=== PATIENT | female | born 1975 | race Caucasian/White ===

== ENCOUNTER 2018-02-28 00:15 | Observation (INO) ==
[2018-02-28 01:33] LABS: Bilirubin,Urine Negative (Negative); Blood,Urine Negative (Negative); Clarity,Urine Cloudy (Clear); Color,Urine Yellow (Yellow); Glucose,Urine (UA) Normal (Normal); Ketones,Urine Negative (Negative); Leukocyte Esterase,Urine Negative (Negative); Nitrite,Urine Negative (Negative); Protein,Urine Negative (Neg-Trace); Specific Gravity,Urine 1.016 (1.010-1.025); Urobilinogen,Urine Normal (Normal)
[2018-02-28 01:36] LABS: Bacteria,Urine Few per hpf (None-Few); Hyaline Casts,Urine None Seen per lpf (None-Few); Squamous Epithelial Cell,Urine Many per lpf (None-Few); WBC,Urine 0-3 per hpf (0-3)
[2018-02-28 01:41] LABS: Amphetamine Screen,Urine Negative ng/mL (Cutoff=1000); Barbiturate Screen,Urine Negative ng/mL (Cutoff=200); Benzodiazepines Screen,Urine Negative ng/mL (Cutoff=200); Cannabinoid Screen,Urine Negative ng/mL (Cutoff = 50); Cocaine Screen,Urine Negative ng/mL (Cutoff= 300); Opiate Screen,Urine Negative ng/mL (Cutoff=300); Phencyclidine Screen,Urine Negative ng/mL (Cutoff=25)
[2018-02-28 01:51] LABS: Basophils # 0.1 K/mcL (0.0-0.2); Basophils % 0.4 %; Eosinophils # 0.1 K/mcL (0.0-0.6); Eosinophils % 0.6 %; Hemoglobin 13.9 g/dL (11.5-15.4); Immature Granulocytes % 0.5 % (0-4); Lymphocytes # 0.5 K/mcL (0.6-4.6); Lymphocytes % 3.9 %; Mean Corpuscular HGB Conc 34.8 g/dL (31.6-35.5); Mean Corpuscular Hemoglobin 31.6 pg (28.0-33.3); Mean Corpuscular Volume 90.9 fL (83.0-100.0); Mean Platelet Volume 10.1 fL (9.4-12.4); Monocytes # 0.4 K/mcL (0.0-1.3); Monocytes % 2.9 %; Platelet Count 209 K/mcL (140-400); Red Cell Distribution Width 13.2 % (11.5-14.5); Segmented Neutrophils % 91.7 %
[2018-02-28 02:00] LABS: INR 0.9; Prothrombin Time 9.2 Seconds (9.4-12.1)
[2018-02-28 02:03] LABS: Activated Partial Thrombo Time 28.6 Seconds (26.0-36.0)
--- NOTE | 2018-02-28 02:06 | Emergency Department Note ---
Disposition Clinical Impression: NSTEMI (non-ST elevated myocardial infarction) Disposition: Admitted As Inpatient Condition: Undetermined Referrals: NONE,PCP [Primary Care Provider] - Forms: ED Satisfaction Letter Chest Pain HPI - General Chief Complaint: ED Chest Pain Stated Complaint: CP/tachycardia Time Seen by Provider: 02/28/18 00:30 Source: patient Mode of arrival: private vehicle Limitations: no limitations Vital Signs Reviewed: Yes Nursing Notes Reviewed: Yes - History of Present Illness HPI Narrative: 43-year-old female past medical history of depression, anxiety, hypertension presents to the emergency department for evaluation of tachycardia and chest pain. Patient states that earlier today and felt like her heart was beating really hard and felt like her throat was closing in, she stated that she pushed through into to go to work. What she was at work she felt like her heart started beating really fast again initially she had a little bit of pain in her chest. She went to her car to calm down and she was looking up her symptoms as stated they are consistent with a heart attack so she came for evaluation. Patient complains of shortness of breath with coughing or exertion, coughing and states she has for the last couple weeks and has not felt well. She denies edema. She states she has had these feelings before particularly the heart beating fast but she started without much of it and it has always gone away on its own. She states she does not take any medication for hypertension because she does not have a PCP but she does have a psychiatrist and continues on her antidepressants and anti-anxiety. She denies fever, chills, nausea, vomiting, diarrhea [place] through exam after patient had a coughing episode she states that the coughing actually increases her chest pain particularly on her left side of her lower back. Pt complaint: chest pain Onset (ago): hour(s) Duration: intermittent Onset: during rest Pain Location: substernal, left chest Severity: none Severity scale (1-10): 0 Quality: tightness Pain Radiation: none Improves with: nothing Worsens with: nothing Treatments prior to arrival chest pain: none - Related Data Home Medications Medication Instructions Recorded Confirmed Citalopram Hydrobromide 40 mg PO QAM 04/19/16 04/19/16 [Citalopram HBr] Gabapentin [Neurontin] 600 mg PO TID 04/19/16 04/19/16 Lisinopril [Zestril] 20 mg PO DAILY 04/19/16 04/19/16 diazePAM [Valium] 5 mg PO BID 04/19/16 04/19/16 hydrOXYzine pamoate [HydrOXYzine 25 mg PO TID PRN 04/19/16 04/19/16 Pamoate] Previous Rx's Medication Instructions Recorded Docusate [Colace] 100 mg PO BID #30 capsule 04/19/16 OxyCODONE/APAP 5/325 [Percocet 1 each PO Q6HR PRN #30 tablet 04/19/16 5/325 MG] Phenazopyridine HCl [Pyridium] 200 mg PO TIDAC #6 tab 07/25/17 Sulfamethoxazole/Trimeth DS 1 each PO BID #14 tablet 07/25/17 [Bactrim DS] Tramadol HCl [Ultram] 50 mg PO TID PRN #6 tab 07/25/17 Lidocaine Patch [Lidoderm 5% patch] 1 each TP DAILY #7 adh..patch 08/22/17 Allergies Allergy/AdvReac Type Severity Reaction Status Date / Time No Known Allergies Allergy Verified 07/25/17 13:51 All systems ED: reviewed and negative except as stated. Review of Systems: As Per HPI Chest Pain PMH - Past Medical History Medical history: Reports: hypertension Surgical history: Reports: other Psychiatric history: Reports: anxiety, depression, previous psychiatric hospitalization [employer] history: Reports: bilateral tubal ligation - Social History Smoking Status: Current every day smoker Alcohol use: Reports: occasionally Drug use: Reports: none Physical Exam - General Limitations: no limitations General appearance: alert, in no apparent distress - Head Head exam: atraumatic, normocephalic, normal inspection - ENT ENT exam: mucous membranes moist - Neck Neck exam: Present: normal inspection, full ROM, trachea midline - Chest Chest inspection: Present: normal inspection, symmetric chest wall rise - Respiratory Respiratory exam: Present: normal lung sounds bilaterally - Cardiovascular Cardiovascular exam: Present: normal rhythm, tachycardia (107 during exam), normal heart sounds - Abdominal Exam Abdominal exam: Present: soft, Non-Tender. Absent: tenderness, distention, guarding, rebound, rigidity - Extremities Exam Extremities exam: Present: normal inspection, full ROM. Absent: tenderness, pedal edema - Back Exam Back exam: Present: normal inspection, full ROM. Absent: tenderness - Neurological Exam Neurological exam: Present: alert, oriented X3 - Psychiatric Psychiatric exam: Present: normal affect, anxious - Skin Skin exam: Present: warm, dry, intact, normal color Course Course Narrative: 43-year-old anxious-appearing female. She speaks in full sentences without any distress, respirations are easy and even, lungs clear to auscultate, she does have a dry cough occasionally during exam. Exam negative, no edema, heart rate regular rhythm, bowel sounds 4. At time of exam patient without any chest pain or feeling like her heart was beating fast. During exam patient states coughing makes her chest hurt worse particularly on the left side. We will workup for chest pain, tachycardia to ensure is not a cardiac etiology. Concern also for URI or pneumonia as patient states she has been coughing. - Reevaluation(s) Reevaluation #1: Troponin returned 0.08. Patient remains tachycardic ranging from 98-10 5 bpm. EKG shows sinus tachycardia with short MS interval, slight elevation in white blood cells, renal function without abnormality. NSTEMI. The patient hospitalist who wanted cardiology consult. Discussed admission with patient is agreeable plan of care. Time: 02:45 Reevaluation #2: Spoke with hospitalist who saw patient willing to take patient. Patient has been resting quietly, no change in physical assessment. Time: 03:31 - Consultations Consultation #1: Spoke with cardiology who recommends heparin drip, admit hospitalist and consult cardiology for close follow-up. Time: 02:58 Vital Signs Temperature 98.0 F 02/28/18 00:30 Pulse Rate 110 02/28/18 00:30 Respiratory Rate 16 02/28/18 00:30 Blood Pressure 142/92 02/28/18 00:30 O2 Sat by Pulse Oximetry 98 02/28/18 00:30 Temperature 98.0 F 02/28/18 00:30 Pulse Rate 101 02/28/18 02:00 Respiratory Rate 16 02/28/18 02:00 Blood Pressure 144/98 02/28/18 02:00 O2 Sat by Pulse Oximetry 97 02/28/18 02:00 Oxygen Delivery Oxygen Delivery Room Air Chest Pain - Differential Diagnosis Likely: atypical chest pain, costalchondritis, chest pain. Unlikely: st elevation myocardial infraction, biliary colic - Medical Records Medical records reviewed: Yes I reviewed the patient's medical records. - Lab Data Lab results reviewed: Yes I reviewed the patient's lab results. Result diagrams: 02/28/18 01:01 02/28/18 01:01 Lab Results 02/28/18 02/28/18 02/28/18 Range/Units 00:51 01:01 01:01 WBC 13.1 H (4.3-11.1) K/mcL RBC 4.40 (3.82-4.97) M/mcL Hgb 13.9 (11.5-15.4) g/dL Hct 40.0 (35.3-44.9) % MCV 90.9 (83.0-100.0) fL MCH 31.6 (28.0-33.3) pg MCHC 34.8 (31.6-35.5) g/dL RDW 13.2 (11.5-14.5) % Plt Count 209 (140-400) K/mcL MPV 10.1 (9.4-12.4) fL Immature Gran % 0.5 (0-4) % Seg Neutrophils % 91.7 % Lymphocytes % 3.9 % Monocytes % 2.9 % Eosinophils % 0.6 % Basophils % 0.4 % Neutrophils # 12.0 H (1.6-8.9) K/mcL Lymphocytes # 0.5 L (0.6-4.6) K/mcL Monocytes # 0.4 (0.0-1.3) K/mcL Eosinophils # 0.1 (0.0-0.6) K/mcL Basophils # 0.1 (0.0-0.2) K/mcL PT 9.2 L (9.4-12.1) Seconds INR 0.9 APTT 28.6 (26.0-36.0) Seconds Sodium 134 L (136-145) mEq/L Potassium 4.2 (3.5-5.1) mEq/L Chloride 105 (98-107) mEq/L Carbon Dioxide 23 (23-29) mEq/L BUN 18 (6-20) mg/dL Creatinine 0.77 (0.60-1.20) mg/dL Est GFR ( Amer) > 60 (> 60) Est GFR (Non-Af Amer) > 60 (> 60) BUN/Creatinine Ratio 23 (6-26) Glucose 133 H (70-105) mg/dL Calculated Osmolality 282 (280-300) Calcium 9.0 (8.6-10.3) mg/dL Total Bilirubin 0.4 (0.3-1.0) mg/dL Direct Bilirubin 0.1 (0.0-0.2) mg/dL Indirect Bilirubin 0.3 (0.0-1.2) mg/dL AST 34 (13-39) Units/L ALT 29 (7-52) Units/L Alkaline Phosphatase 160 H (34-104) Units/L Troponin I 0.08 H* (< 0.04) ng/mL Serum Total Protein 6.5 (6.4-8.9) g/dL Albumin 3.9 (3.5-5.7) g/dL Globulin 2.6 (2.4-3.5) g/dL Albumin/Globulin Ratio 1.5 (1.1-2.2) Lipase 14 (11-82) Units/L Urine Color (Yellow) Urine Clarity (Clear) Urine pH (5.0-8.0) pH Units Ur Specific [place] (1.010-1.025) Urine Protein (Neg-Trace) mg/dL Urine Glucose (UA) (Normal) mg/dL Urine Ketones (Negative) mg/dL Urine Blood (Negative) Urine Nitrite (Negative) Urine Bilirubin (Negative) Urine Urobilinogen (Normal) mg/dL Ur Leukocyte Esterase (Negative) Urine Microscopic RBC Urine Microscopic WBC (0-3) per hpf Ur Squamous Epith Cells (None-Few) per lpf Urine Bacteria (None-Few) per hpf Hyaline Casts (None-Few) per lpf Ur Culture Indicated? (NO) Urine Test (Negative) Urine Opiates Screen (Fqjfbg=761) ng/mL Ur Barbiturates Screen (Qcrgoc=298) ng/mL Ur Phencyclidine Scrn (Cutoff=25) ng/mL Ur Amphetamines Screen (Oyexbu=1986) ng/mL U Benzodiazepines Scrn (Vbnmll=249) ng/mL Urine Cocaine Screen (Cutoff= 300) ng/mL U Marijuana (THC) Screen (Cutoff = 50) ng/mL 02/28/18 02/28/18 02/28/18 Range/Units 01:20 01:20 01:20 WBC (4.3-11.1) K/mcL RBC (3.82-4.97) M/mcL Hgb (11.5-15.4) g/dL Hct (35.3-44.9) % MCV (83.0-100.0) fL MCH (28.0-33.3) pg MCHC (31.6-35.5) g/dL RDW (11.5-14.5) % Plt Count (140-400) K/mcL MPV (9.4-12.4) fL Immature Gran % (0-4) % Seg Neutrophils % % Lymphocytes % % Monocytes % % Eosinophils % % Basophils % % Neutrophils # (1.6-8.9) K/mcL Lymphocytes # (0.6-4.6) K/mcL Monocytes # (0.0-1.3) K/mcL Eosinophils # (0.0-0.6) K/mcL Basophils # (0.0-0.2) K/mcL PT (9.4-12.1) Seconds INR APTT (26.0-36.0) Seconds Sodium (136-145) mEq/L Potassium (3.5-5.1) mEq/L Chloride (98-107) mEq/L Carbon Dioxide (23-29) mEq/L BUN (6-20) mg/dL Creatinine (0.60-1.20) mg/dL Est GFR ( Amer) (> 60) Est GFR (Non-Af Amer) (> 60) BUN/Creatinine Ratio (6-26) Glucose (70-105) mg/dL Calculated Osmolality (280-300) Calcium (8.6-10.3) mg/dL Total Bilirubin (0.3-1.0) mg/dL Direct Bilirubin (0.0-0.2) mg/dL Indirect Bilirubin (0.0-1.2) mg/dL AST (13-39) Units/L ALT (7-52) Units/L Alkaline Phosphatase (34-104) Units/L Troponin I (< 0.04) ng/mL Serum Total Protein (6.4-8.9) g/dL Albumin (3.5-5.7) g/dL Globulin (2.4-3.5) g/dL Albumin/Globulin Ratio (1.1-2.2) Lipase (11-82) Units/L Urine Color Yellow (Yellow) Urine Clarity Cloudy A (Clear) Urine pH 6.0 (5.0-8.0) pH Units Ur Specific [place] 1.016 (1.010-1.025) Urine Protein Negative (Neg-Trace) mg/dL Urine Glucose (UA) Normal (Normal) mg/dL Urine Ketones Negative (Negative) mg/dL Urine Blood Negative (Negative) Urine Nitrite Negative (Negative) Urine Bilirubin Negative (Negative) Urine Urobilinogen Normal (Normal) mg/dL Ur Leukocyte Esterase Negative (Negative) Urine Microscopic RBC Test Not Performed Urine Microscopic WBC 0-3 (0-3) per hpf Ur Squamous Epith Cells Many H (None-Few) per lpf Urine Bacteria Few (None-Few) per hpf Hyaline Casts None Seen (None-Few) per lpf Ur Culture Indicated? NO (NO) Urine Test Negative (Negative) Urine Opiates Screen Negative (Ycybsy=582) ng/mL Ur Barbiturates Screen Negative (Wruxyg=574) ng/mL Ur Phencyclidine Scrn Negative (Cutoff=25) ng/mL Ur Amphetamines Screen Negative (Rnmoip=0681) ng/mL U Benzodiazepines Scrn Negative (Qeyidb=352) ng/mL Urine Cocaine Screen Negative (Cutoff= 300) ng/mL U Marijuana (THC) Screen Negative (Cutoff = 50) ng/mL - Radiology Data Radiology results reviewed: Yes I reviewed the patient's radiology results. - EKG Data EKG attestation: Yes I reviewed and interpreted this EKG. EKG results narrative: EKG reveals sinus tachycardia with a short MS interval with possible left atrial enlargement. That rate 118 bpm, MS interval [address] elevation, depression. Heart Score - Score History: Slightly Suspicious EKG: Normal Age: Less than 45 Risk Factors: No risk factors known Troponin: 1-3x normal limit HEART Score Total: 1
[2018-02-28 02:13] LABS: Alanine Aminotransferase 29 Units/L (7-52); Albumin 3.9 g/dL (3.5-5.7); Albumin/Globulin Ratio 1.5 (1.1-2.2); Alkaline Phosphatase 160 Units/L (34-104); Aspartate Amino Transferase 34 Units/L (13-39); BUN/Creatinine Ratio 23 (6-26); Bilirubin,Direct 0.1 mg/dL (0.0-0.2); Bilirubin,Indirect 0.3 mg/dL (0.0-1.2); Bilirubin,Total 0.4 mg/dL (0.3-1.0); Blood Urea Nitrogen 18 mg/dL (6-20); Carbon Dioxide 23 mEq/L (23-29); Chloride 105 mEq/L (98-107); Globulin 2.6 g/dL (2.4-3.5); Glucose 133 mg/dL (70-105); Lipase 14 Units/L (11-82); Osmolality,Calculated 282 (280-300); Potassium 4.2 mEq/L (3.5-5.1); Sodium 134 mEq/L (136-145); Total Protein 6.5 g/dL (6.4-8.9); eGFR For African Americans > 60 (> 60); eGFR For Non-African Americans > 60 (> 60)
[2018-02-28 02:28] LABS: Troponin I 0.08 ng/mL (< 0.04)
[2018-02-28] MEDS ORDERED: Aspirin 81 MG TAB.CHEW PO ONE (02:29)
[2018-02-28] MEDS ORDERED: Heparin 25,000 UNIT/500 ML D5W 25,000 UNIT/500 ML BAG IVC SCH (03:00)
[2018-02-28] MEDS ORDERED: Naloxone 0.4 MG/ML INJ IVP PRN (03:15)
[2018-02-28] MEDS ORDERED: Acetaminophen 325 MG TABLET PO PRN (03:15)
[2018-02-28] MEDS ORDERED: Nitroglycerin 0.4 MG TAB.SUBL SL PRN (03:16)
--- NOTE | 2018-02-28 03:19 | Internal Med History&Physical ---
Date of Encounter: 02/28/18 Time of Encounter: 03:17 Internal Medicine - H&P: HPI Chief complaint: Tachycardia Admitted From: Emergency Dept Plans for Post Hospital Care: Home History of present illness: Ms. Almaguer is a 43 year old female with history of anxiety and tobacco abuse and hypertension for which she is not taking any medication presents reporting 2 days worth of palpitations and chest discomfort that is midsternal. No radiation. Associated diaphoresis. This is exacerbated by exertion. Comes in goes for short periods of times throughout the day. This morning when she woke up and was getting ready to work she was not feeling herself and felt that the dictations and again was diaphoretic and felt chest discomfort again. She went to work and had a similar episode and she went back outside to her car and looked up on the issue on her phone and came to the ED as she suspected that she may have a heart attack. In the ED she was noted to be tachycardic and was given aspirin. She had laboratory workup that showed troponin of 0.08. She had no acute ST or T-wave changes on EKG. Cardiology were consulted in the ED and recommended a heparin drip. The patient is a current every day smoker. She has family history of cardiac disease in her uncles. She herself never had any cardiac workup. Reports a dry cough for the last few days. Denies any fever, chills, nausea, vomiting, abdominal pain, diarrhea, constipation, urinary symptoms, or neurological symptoms Past Med Surg Social Fam HX - Past Medical History Medical history: hypertension Psychiatric history: anxiety, depression, previous psychiatric hospitalization - Past Surgical History Surgical History: other - Social History Smoking Status: Current every day smoker Smokeless Tobacco Status: No Alcohol use: occasionally Drug use: none Internal Medicine - H&P: Meds Citalopram Hydrobromide [Citalopram HBr] 40 mg PO QAM 04/19/16 [History] Docusate [Colace] 100 mg PO BID #30 capsule 04/19/16 [Rx] Gabapentin [Neurontin] 600 mg PO TID 04/19/16 [History] Lisinopril [Zestril] 20 mg PO DAILY 04/19/16 [History] OxyCODONE/APAP 5/325 [Percocet 5/325 MG] 1 each PO Q6HR PRN #30 tablet 04/19/16 [Rx] diazePAM [Valium] 5 mg PO BID 04/19/16 [History] hydrOXYzine pamoate [HydrOXYzine Pamoate] 25 mg PO TID PRN 04/19/16 [History] Phenazopyridine HCl [Pyridium] 200 mg PO TIDAC #6 tab 07/25/17 [Rx] Sulfamethoxazole/Trimeth DS [Bactrim DS] 1 each PO BID #14 tablet 07/25/17 [Rx] Tramadol HCl [Ultram] 50 mg PO TID PRN #6 tab 07/25/17 [Rx] Lidocaine Patch [Lidoderm 5% patch] 1 each TP DAILY #7 adh..patch 08/22/17 [Rx] 3 Allergy/AdvReac Type Severity Reaction Status Date / Time No Known Allergies Allergy Verified 07/25/17 13:51 All Systems PM: A 10-system review of systems was performed and is negative for pertinent findings except as documented above in the HPI. Review of systems: all systems reviewed are negative except for what is mentioned above - Constitutional Vitals: Temp Pulse Resp BP Pulse Ox 98.0 F 101 16 144/98 97 02/28/18 00:30 02/28/18 02:00 02/28/18 02:00 02/28/18 02:00 02/28/18 02:00 Exam: GEN: NAD HEENT: AT, NC, No cyanosis, oral mucosa is moist, No JVD Lymphatics: No lymphadenoapthy Eyes: Extrocular muscles intact, anicteric CVS: Tachycardic. S1, S2, No m/r/g RESP: CTAB ABD: Soft, NT, ND, +BS EXT: No edema, No rashes, 2+ DP NEURO: Nonfocal, CN II-XII intact, No focal motor or sensory deficits Psych: Cooperative, Not anxious or depressed Internal Med - H&P Results - Labs CBC & Chem 7: 02/28/18 01:01 02/28/18 01:01 Labs: Short CBC 02/28/18 Range/Units 01:01 WBC 13.1 H (4.3-11.1) K/mcL Hgb 13.9 (11.5-15.4) g/dL Hct 40.0 (35.3-44.9) % Plt Count 209 (140-400) K/mcL Neutrophils # 12.0 H (1.6-8.9) K/mcL BMP 02/28/18 01:01 Sodium 134 L Potassium 4.2 Chloride 105 Carbon Dioxide 23 BUN 18 Creatinine 0.77 Glucose 133 H Calcium 9.0 Cardiac Enzymes 02/28/18 Range/Units 01:01 Troponin I 0.08 H* (< 0.04) ng/mL Liver Function 02/28/18 Range/Units 01:01 Total Bilirubin 0.4 (0.3-1.0) mg/dL Direct Bilirubin 0.1 (0.0-0.2) mg/dL AST 34 (13-39) Units/L ALT 29 (7-52) Units/L Alkaline Phosphatase 160 H (34-104) Units/L Albumin 3.9 (3.5-5.7) g/dL Urine 02/28/18 Range/Units 01:20 Urine Color Yellow (Yellow) Urine Clarity Cloudy A (Clear) Urine pH 6.0 (5.0-8.0) pH Units Ur Specific [place] 1.016 (1.010-1.025) Urine Protein Negative (Neg-Trace) mg/dL Urine Glucose (UA) Normal (Normal) mg/dL - Impressions ITS Impressions Chest X-Ray 02/28/18 00:51 IMPRESSION: No acute cardiopulmonary disease. D/ / Ketan Avilez MD / Ketan Avilez MD Interpreting Provider: Ketan Avilez MD - Assessment and plan (1) NSTEMI (non-ST elevated myocardial infarction) Current Visit: Yes Status: Acute Assessment and plan: We will admit the patient and place on telemetry. Cardiology has been consulted from the ED and placed on heparin drip. We will trend cardiac enzymes. Check A1c and lipid panel. Patient has been given aspirin already. Nitroglycerin when necessary. Nothing by mouth (2) Leukocytosis Current Visit: Yes Status: Acute Assessment and plan: Likely reactive versus possibly viral URI. No need for antibiotics for now. We will continue to monitor. Patient is afebrile Qualifiers: Leukocytosis type: unspecified Qualified Code(s): D72.829 - Elevated white blood cell count, unspecified (3) Elevated glucose level Current Visit: Yes Status: Acute Assessment and plan: No history of diabetes. We will check A1c. (4) Anxiety Current Visit: Yes Status: Acute Assessment and plan: Continue home meds (5) DVT prophylaxis Current Visit: Yes Status: Acute Assessment and plan: on heparin drip - Time Spent With Patient Total time spent is greater than 50% in coordination of care (as documented) at patient's floor/unit and/or counseling patient:
[2018-02-28] MEDS ORDERED: Nitroglycerin 1 INCH/GM PACKET TP ONE (03:26)
[2018-02-28 08:09] LABS: Chol/HDL Ratio 2.3 (0-4.9)
[2018-02-28] MEDS: Gabapentin 300 MG CAPSULE PO SCH ×3 (08:50→19:26)
[2018-02-28] MEDS: diazePAM 5 MG TABLET PO SCH ×2 (08:50→19:26)
[2018-02-28] MEDS: Nicotine 21 MG PATCH.TD24 TD SCH (08:51)
[2018-02-28 09:27] LABS: Troponin I 0.13 ng/mL (< 0.04)
[2018-02-28 09:34] LABS: Thyroid Stimulating Hormone 2.433 mcIU/mL (0.340-5.600)
--- NOTE | 2018-02-28 10:23 | Cardiology Consult Note ---
Date of Encounter: 02/28/18 Time of Encounter: 09:00 Assessment and Plan (1) NSTEMI (non-ST elevated myocardial infarction) Current Visit: Yes Status: Acute Per cardiology: -Admitted with chest pain radiating to left arm and jaw. -Troponins 0.08, 0.13. -ECG with no acute ischemic changes. -Denies current chest pain. -ON heparin drip. -Risk factors for CAD smoking, HTN. -Plan for LHC today. Risks versus benefits of LHC explained to patient. Patient states understanding and agrees with plan. -Will start asa, statin, BB. -WIll check TTE -Further recommendations pending TTE and LHC. (2) Tobacco abuse Current Visit: Yes Status: Acute Per cardiology: -Known tobacco abuse. -Smokes 1.5 PPD for 20 years. -SMoking cessation education provided. Discussion w patient/family: The assessment and plan as outlined above was discussed with the patient who expressed understanding and agreement. All questions were answered. Thank you for involving us in the care of your patient. Please call with any questions. Discussed and reviewed with . History of Present Illness Consult date: 02/28/18 Requesting physician: Gemma Dunn Consult reason: chest pain, elevated trop Chief complaint: chest pain History of present illness: Ms. Almaguer is a 43 year old female with a relevant past medical history of HTN , tobacco abuse, depression, anxiety who presented to [facility] [place] with complaints of left sided chest pain that radiated into left arm and jaw. Patient reports has been having this pain intermittently for a few weeks. Patient reports also increased shortness of breath with exertion. Patient reports symptoms and rest and with exertion. Past Med Surg Social Fam HX - Past Medical History Attestation: Yes The following information was validated with the patient. Source: patient, old records reviewed Medical history: hypertension Psychiatric history: anxiety, depression, previous psychiatric hospitalization - Past Surgical History Surgical History: other - Social History Smoking Status: Current every day smoker Packs per day: 1.5 Smokeless Tobacco Status: No Alcohol use: occasionally Drug use: none - Family History Grandfather Living Status: Hx Family Cardiac Disorders: Yes Medications and Allergies Citalopram Hydrobromide [Citalopram HBr] 40 mg PO QAM 04/19/16 [History] BuPROPion XL (24 HR) [Wellbutrin XL] 300 mg PO DAILY 02/28/18 [History] Gabapentin [Neurontin] 800 mg PO TID 02/28/18 [History] hydrOXYzine HCl [Hydroxyzine HCl] 25 mg PO TID PRN 02/28/18 [History] traZODone [TraZODone] 100 mg PO HS 02/28/18 [History] 3 Allergy/AdvReac Type Severity Reaction Status Date / Time No Known Allergies Allergy Verified 07/25/17 13:51 All Systems Review: The remainder of the systems were reviewed and are negative - Cardiovascular Cardiovascular: as per HPI, chest pain at rest, chest pain with exertion, dyspnea on exertion Physical Examination Vital Signs, Last 4 Hours Temp Pulse Resp BP Pulse Ox 02/28/18 07:33 98.0 F 87 18 153/94 96 General: Conversant, No Apparent Distress HEENT: Atraumatic, Normocephaly, Mucus Membranes Moist Neck: No JVD, Normal carotid pulses Cardiac: Reg Rate and Rhythm, Normal S1 and S2, No Murmur Lungs: Normal Breath Sounds, No Wheeze, Rales, Rhonchi Neuro: Alert and responsive, No focal deficits noted Abdomen: Soft, Non-Tender Skin: No rashes noted on visualized skin Musculoskeletal: No Chest Wall Tenderness Extremities: No Clubbing, No Cyanosis, No Edema, Normal Pulses Results 02/28/18 01:01 02/28/18 01:01 Lab Results Impressions Chest X-Ray 02/28/18 00:51 IMPRESSION: No acute cardiopulmonary disease. D/ / Ketan Avilez MD / Ketan Avilez MD Interpreting Provider: Ketan Avilez MD Active Medications Acetaminophen (Tylenol) 650 mg PO Q6HR PRN PRN Reason: Mild Pain/Fever Stop: 08/30/18 03:16 Bupropion HCl (Wellbutrin Xl) 300 mg PO DAILY [facility] Stop: 08/30/18 09:01 Citalopram Hydrobromide (Celexa) 40 mg PO QAM [facility] Stop: 08/30/18 09:01 Last Admin: 02/28/18 08:50 Dose: 40 mg Diazepam (Valium) 5 mg PO BID [facility] Stop: 08/30/18 09:01 Last Admin: 02/28/18 08:50 Dose: 5 mg Gabapentin (Neurontin) 600 mg PO TID [facility] Stop: 08/30/18 09:01 Last Admin: 02/28/18 08:50 Dose: 600 mg Hydroxyzine Pamoate (Hydroxyzine Pamoate) 25 mg PO TID PRN PRN Reason: Breakthrough Anxiety Stop: 08/30/18 06:47 Heparin Sodium/Dextrose (Heparin 25,000 Unit/500 Ml D5w) 25,000 unit in 500 mls @ 20.321 mls/hr IVC .Q24H [facility]; 14 UNIT/KG/HR PRN Reason: Protocol Stop: 08/30/18 03:01 Last Admin: 02/28/18 03:16 Dose: 14 unit/kg/hr, 20.321 mls/hr Naloxone HCl (Narcan) 0.4 mg IVP Q2MIN PRN PRN Reason: SEE COMMENTS Stop: 08/30/18 03:16 Nicotine (Nicoderm) 21 mg TD DAILY [facility] PRN Reason: Protocol Stop: 08/30/18 09:01 Last Admin: 02/28/18 08:51 Dose: Not Given Nitroglycerin (Nitroglycerin) 0.4 mg SL Q5MIN PRN PRN Reason: Chest Pain Stop: 08/30/18 03:17 Laboratory Tests 02/28/18 02/28/18 02/28/18 01:01 01:01 07:30 WBC 13.1 H Hgb 13.9 Creatinine 0.77 Troponin I 0.08 H* 0.13 H* - Imaging and Cardiology Chest Xray: report reviewed Cardiac cath: pending - EKG Interpretation EKG results cardiology: personally reviewed (ECG with ST, HR 118.), other ( Telemetry reviewed with average HR previous 12 hours noted to be 88, SR. PACs noted.) Consult Discharge Plan - Plan Referrals: NONE,PCP [Primary Care Provider] -
[2018-02-28] MEDS ORDERED: *HR* Heparin 5,000 UNIT/ML VIAL IVP PRN ×2 (10:39)
[2018-02-28] MEDS ORDERED: *HR* Heparin 5,000 UNIT/ML VIAL ONE (10:46)
[2018-02-28] MEDS: BuPROPion XL (24 HR) 150 MG TABLET PO SCH (10:49)
[2018-02-28 11:05] LABS: Estimated Average Glucose 108 mg/dl; Hemoglobin A1C 5.4 %
[2018-02-28] MEDS ORDERED: Heparin 1,000 UNITS/500 mL 500 ML ONE (13:52)
[2018-02-28] MEDS ORDERED: ISOVUE-370 200 ML INFUS..BTL IV ONE (13:52)
[2018-02-28] MEDS ORDERED: *HR* Heparin 10,000 UNIT/10 ML VIAL ONE (13:52)
[2018-02-28] MEDS ORDERED: Nitroglycerin 1,000 MCG/10 ML VIAL IV ONE (13:52)
[2018-02-28] MEDS ORDERED: 0.9 % Sodium Chloride 1,000 ML ONE (13:52)
--- NOTE | 2018-02-28 14:09 | Pre-Sedation Evaluation ---
Pre-sedation evaluation - Pre-sedation checklist Date of procedure: 02/28/18 Procedure: [facility] Recent Vitals: Last Vital Signs Temp 98.8 F 02/28/18 11:32 Pulse 83 02/28/18 11:32 Resp 18 02/28/18 11:32 BP 147/89 02/28/18 11:32 Pulse Ox 96 02/28/18 11:32 H&P (including ROS) documented in medical record: Yes Previous reaction to sedatives/anesthetics: No Dietary Status: NPO after Midnight Airway Assessment: Patient can open mouth completely, TMJ function normal, Micrognathia (under-bite, receding chin) absent, Neck with adequate range of motion Dentition: No loose teeth or bridges Possible difficult airway: No ASA Classification *see protocol: CLASS II-Mild systemic disease Plan of Care: Pt appropriate candidate for procedure/moderate/conscious sedation , Risks/benefits of procedure/sedation discussed w/ patient/family
[2018-02-28] MEDS ORDERED: *HR* Midazolam HCl 2 MG/2 ML VIAL ONE (14:20)
[2018-02-28] MEDS ORDERED: *HR* FentaNYL (PF) 100 MCG/2 ML VIAL ONE (14:20)
--- NOTE | 2018-02-28 14:57 | Invasive Diagnostic Lab Proc ---
Name: Zoie Almaguer Date of Study: 02/28/2018 Date: 1975 Ht: 61.8in Medical Record#: [id number] Age: 43 Wt: 169.76lb Gender: Female BSA: 1.78 Order #: [id number] BMI: 31.24 Physicians Procedure Physician: Maya Hernandez MD, FACC Referring MD: Referring MD: Staff Name Position Time In Julia Landrum RT (R) Monitor 02:19 PM Kimberly Ceron RN Ski Lift Operator 02:19 PM Robert Gomez RT (R) Scrub 02:19 PM Indications Indication Non-Stemi Procedures Performed Procedure L HRT ARTERY/VENTRICLE ANGIO Pre-Procedure Checklist Informed consent is complete signed and on chart. H&P is on chart. ID band is on and ID verified with patient. Patient NPO for procedure The procedure was described for the patient and questions were answered. Blood Pressure: 154/98 ECG is on chart. Rhythm: NSR Plan of Care Patient will tolerate the procedure without complications. Adequate level of comfort will be maintained. Hemodynamics will remain stable Patient will recover from procedure without complications. Respiratory function will be maintained. Cardiac rhythm will remain stable. Patient temperature will be maintained. Patient and/or family have verbalized understanding of the procedure. Patient Education Chief Complaint/Reason for Test: Cardiac Cath Developmental Category: Adult (18-64 years) Developmentally Appropriate for Age: Yes Learning Barriers: None Education Needs: Procedure Education Method: Verbal Information Taught: Cardiac Cath Educational Evaluation: Able to repeat information Intravenous Access Time IV Size Location DC'd Fluid/Drip Rate Units RN 20g 1 /" Patent On Arrival 0.9NaCl ml/hr Allergies NKA No Known Allergies Vital Signs Time BP (mmHg) HR (bpm) O2 Sat. RR (bpm) LOC 02:20 PM 152 / 98 82 98 % 16 4 = Oriented but drowsy 02:21 PM / % 4 = Oriented but drowsy 02:21 PM 154 / 98 84 97 % 02:26 PM 145 / 93 85 96 % 02:31 PM 142 / 89 80 97 % 02:36 PM 142 / 91 80 97 % 02:41 PM 145 / 94 82 96 % 02:36 PM / % 4 = Oriented but drowsy Procedural Medications Time Medication Dose Units Method Given By 02:20 PM Oxygen 2 L/min nasal cannula Kimberly Ceron RN 02:20 PM Versed 2 mg Intravenous Kimberly Ceron RN 02:20 PM Fentanyl 50 mcg Intravenous Kimberly Ceron RN 02:29 PM Lidocaine 2% 20 ml Subcutaneous Maya Hernandez MD, [facility] ASA Classification: CLASS II- Mild systemic disease (i.e. well-controlled diabetes, hypertension, asthma, cigarette smoking) Enoc Score Preprocedure Postprocedure Activity 2- Moves 4 extremities sustained head lift Activity 2- Moves 4 extremities sustained head lift Circulation 2- SBP +/= 20 points of pre-anesthetic level Circulation 2- SBP +/= 20 points of pre-anesthetic level Consciousness 2- Awake and alert oriented x 3 Consciousness 2- Awake and alert oriented x 3 O2 Saturation 2- Able to maintain O2 satruation of 92% on room air O2 Saturation 2- Able to maintain O2 satruation of 92% on room air Respiratory 2- Able to deep breathe and cough well Respiratory 2- Able to deep breathe and cough well Total Score 10 Total Score 10 Contrast Agent: Isovue Diagnostic Contrast: 44 ml Total Contrast: 44 ml Fluoro Dose: 91 mGy Procedure Log Time Note Enter By 02:19 PM Recorded ECG: HR=83 Condition=Condition 1 02:19 PM Pt arrived to veterinary laboratory technician 1 at 14:19 [email or web address] 02:19 PM Julia Landrum RT (R) Position: Monitor [facility]: 14[facility]19 [email or web address] PM Kimberly Ceron RN Position: Ski Lift Operator Time in: 14:19 [email or web address] 02:19 PM Robert Gomez RT (R) Position: Scrub Time [facility]: 14:19 [email or web address] 02:19 PM Patient charges- Angio tray pack, Navilyst 3mm J, Pulse Oximetry and ACIST tubing and transducer [email or web address] 02:20 PM Case Delayed No [email or web address] 02:20 PM Hair removed from procedure site in holding area using clippers. Bilateral groin prepped with Chloraprep by Juancarlos Edmondson, then patient was draped. Skin intact. [email or web address] 02:20 PM Physican paged/called 14:20. [email or web address] 02:20 PM Physician arrived 14:[email or web address] 02[facility] PM ASA Class CLASS II- Mild systemic disease (i.e. well-controlled diabetes, hypertension, asthma, cigarette smoking) [email or web address] 02:20 PM Meet and greet completed [email or web address] 02:20 PM Sign in performed according to hospital policy. [email or web address] 02:20 PM Procedure start 14:20 [email or web address] 02:20 PM Time: 14:20 Oxygen on at 2 L/min per nasal cannula by Kimberly Ceron RN [email or web address] 02:20 PM CathStat 02:20 PM Vitals capture started with the following parameters, Patient=Adult, Interval=5 min, Initial Oonmslqx=656 mmHg, Deflation Rate=5 mmHg, Cuff placed on Right Arm 02:20 PM Time: 14:20 Versed 2 mg Intravenous Given by Kimberly Ceron RN [email or web address] 02:20 PM Time: 14:20 Fentanyl 50 mcg Intravenous Given by Kimberly Ceron RN [email or web address] 02:20 PM Time: 14:20 Patient comfortable and pain free: Yes [email or web address] 02:21 PM Time: 14:20LOC: 4 = Oriented but drowsy [email or web address] 02:21 PM HR=84 bpm, JEUK=724/98 mmhg, SpO2=97.0 %, Comment=NSR 02:23 PM Pressure channel 1 zero failed. 02:23 PM Pressure channel 1 zeroed. 02:26 PM HR=85 bpm, SIHJ=311/93 mmhg, SpO2=96.0 %, Comment=NSR 02:28 PM Time out performed according to hospital policy [email or web address] 02:29 PM Time: 14:29 18 ml Lidocaine 2% to right groin Subcutaneous Given by Maya Hernandez MD, [facility] [email or web address] 02:30 PM Access obtained by percutaneous puncture. 5Fr 10cm Terumo Osborn sheath placed in right Femoral artery. [id number] [email or web address] 02:31 PM HR=80 bpm, LWXU=177/89 mmhg, SpO2=97.0 %, Comment=NSR 02:31 PM 0.035 145cm Navilyst 3mmJ wire [id number] [email or web address] 02:31 PM 5Fr FL 4 catheter inserted over the wire [facility] [email or web address] 02:32 PM LCA angiography performed in multiple views. [email or web address] 02:32 PM Recorded Pressure: Ao, HR=84, Condition=Condition 1 (Aorta) Ao 132/97/112 02:33 PM Catheter removed [email or web address] 02:33 PM 5Fr FR 4 catheter inserted over the wire DN [email or web address] 02:33 PM RCA angiography performed in multiple views. [email or web address] 02:35 PM Recorded Pressure: Ao, HR=82, Condition=Condition 1 (Aorta) Ao 132/101/117 02:35 PM Catheter removed [email or web address] 02:35 PM 5Fr Pigtail catheter inserted over the wire DN [email or web address] 02:35 PM Catheter selectively placed in left ventricle [email or web address] 02:35 PM Time: 14:20 Patient comfortable and pain free: Yes [email or web address] 02:36 PM Time: 14:21LOC: 4 = Oriented but drowsy [email or web address] 02:36 PM HR=80 bpm, QWHE=568/91 mmhg, SpO2=97.0 %, Comment=NSR 02:36 PM Pressure channel 1 zeroed. 02:36 PM Recorded Pressure: LV, HR=81, Condition=Condition 1 (Left Ventricle) LV 119/25/37 02:37 PM Bolus angiogram of left Ventricle complete: 8 ml/sec for a total of 24 mls [email or web address] 02:37 PM Recorded Pressure: LV, Ao, HR=75, Condition=Condition 1 (Left Ventricle) LV 122/26/64, (Aorta) Ao 131/92/111 02:37 PM Catheter removed [email or web address] 02:37 PM Bolus angiogram of right Femoral complete: 4 ml/sec for a total of 7 mls [email or web address] 02:38 PM Procedure completed at 14:38 [email or web address] 02:39 PM Sign out completed: Radiation Dose 91.03 mGy Fluoro Time: 1.7 Isovue 370 - 200ml contrast 44 ml given by Maya Hernandez MD, [facility]. Complications: NoneCardiac Rehab Consult needed: NoConfirmed administered medications: Yes [email or web address] 02:39 PM Isovue 370 - 200ml,1 Bottle(s) used. [email or web address] 02:39 PM Arterial sheath pulled, Mynx closure device used and was Successful S/N. [email or web address] 02:39 PM Estimated Blood Loss: minimal [email or web address] 02:39 PM Coronary Dominance: Co-dominant [email or web address] 02:39 PM Post ECG NSR [email or web address] 02:39 PM Post Blood Pressure 142/91 [email or web address] 02:39 PM 14:39 Post Pulses Bilateral DP & PT 2+ [email or web address] 02:40 PM Information taught Cardiac Cath [email or web address] 02:40 PM Education needs Procedure, Plan of Care, and Disease Process [email or web address] 02:40 PM Learning barriers :None [email or web address] 02:40 PM Education Methods Verbal [email or web address] 02:40 PM Education evaluation Able to repeat information [email or web address] 02:40 PM Delay to floor No [email or web address] 02:40 PM Family placed in consult room. [email or web address] 02:40 PM Complications: None [email or web address] 02:40 PM Fluoro Time: 1.7 [email or web address] 02:40 PM Isovue 370 - 200ml contrast [address] Roselia Hernandez. [email or web address] 02:41 PM HR=82 bpm, KRWA=818/94 mmhg, SpO2=96.0 %, Comment=NSR 02:42 PM Site status No bleeding/hematoma - Rt Groin as reported by Robert Gomez RT (R) at 14:42 [email or web address] 02:42 PM Opsite applied [email or web address] 02:49 PM Report given to Barbie TYLER Pt taken to 3B Room #47. 14:49 [email or web address] 02:50 PM Patient out of room: 14:50 [email or web address] 02:51 PM Time: 14:35 Patient comfortable and pain free: Yes [email or web address] 02:51 PM Time: 14:36LOC: 4 = Oriented but drowsy [email or web address] Complications Complication None None Hemodynamics Pressures Site Systolic/A Wave Diastolic/V Wave Mean AO 132 97 112 AO 132 101 117 LV 119 25 37 LV 122 26 64 AO 131 92 111 Post Procedure Information Blood Pressure: 142/91 mmHg Rhythm: NSR Post procedural instructions were not given Closure Device Time Device Success/Fail 02/28/2018 2:42:00 PM MynxGrip Successful Site Checks Time Location Status Staff Sheath In? Note 02:42 PM Rt Groin No bleeding/hematoma Robert Gomez RT (R) Pulses Time Site Pre-Procedure Post-Procedure Note Bilateral DP 1+ Bilateral PT 2+ Bilateral radial 2+ 2:39:00 PM Bilateral DP & PT 2+ Updated by Julia Landrum, RT(R) on 02/28/2018 2:51:24 PM electronically signed on 02/28/2018 2:51:52 PM with status of Final
--- NOTE | 2018-02-28 15:01 | Event Note ---
Date of Encounter: 02/28/18 Time of Encounter: 15:00 - Cardiology Event Note Per discussion with Dr.Jennifer Hernandez [facility] without intervention. Recommend aggressive risk factor modification. Cardiology will sign off.
[2018-02-28] MEDS: hydrOXYzine pamoate 25 MG CAPSULE PO PRN ×2 (15:11→19:30)
--- NOTE | 2018-02-28 16:58 | Electrocardiograph Report ---
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
--- NOTE | 2018-02-28 18:45 | Internal Med Progress Note ---
Date of Encounter: 02/28/18 Time of Encounter: 11:15 - Assessment and plan (1) Anxiety Current Visit: Yes Status: Acute Assessment and plan: Chronic. Continue Wellbutrin and Celexa. (2) Elevated glucose level Current Visit: Yes Status: Acute Assessment and plan: No history of diabetes. A1c was within normal limits at 5.4%. Continue to monitor. (3) NSTEMI (non-ST elevated myocardial infarction) Current Visit: Yes Status: Acute Assessment and plan: Patient with elevated troponin 0.08, 0.13, 0.08. Chest x-ray is negative. EKG negative for ST ischemic changes. Patient had LHC today that showed angiographically normal coronary arteries. LVEF of 65%. Recommendations included optimal medical therapy and aggressive risk factor modification. Patient risk factors include tobacco abuse, anxiety. Patient reports smoking 1-1/2 packs per day. I will continue to encourage smoking cessation. Continue aspirin, statin, beta sahara after discharge Echocardiogram ordered and still pending. Continue telemetry (4) DVT prophylaxis Current Visit: Yes Status: Acute Assessment and plan: Patient was on heparin drip on admission. Encourage ambulation. (5) Leukocytosis Current Visit: Yes Status: Acute Assessment and plan: Likely reactive, we will redraw labs in the morning. No signs of infection. Patient is afebrile. Qualifiers: Leukocytosis type: unspecified Qualified Code(s): D72.829 - Elevated white blood cell count, unspecified - Time Spent With Patient Total time spent is greater than 50% in coordination of care (as documented) at patient's floor/unit and/or counseling patient: less than 15 minutes - Subjective Interval history: Patient was seen and assessed at bedside at 11:15 AM. Patient was tearful and having anxiety for going to heart catheter today. Patient reports that she smokes 1-1/2 packs of cigarettes a day and has had a productive cough and wheezing for 7 days. She continues to deny palpitations and reports 3/10 pressure left chest as well as associated shortness of breath. She denies any headache or vision changes. She denies abdominal pain, nausea, vomiting. She denies any recent peripheral edema. - Constitutional Vitals: Temp Pulse Resp BP Pulse Ox 98.8 F 90 16 138/88 95 02/28/18 11:32 02/28/18 17:30 02/28/18 17:30 02/28/18 17:30 02/28/18 17:30 General appearance: Present: cooperative, A&O X 3, pleasant, no acute distress, answers questions appropriately - Head Head exam: Present: atraumatic, normal inspection, normocephalic - Eye Eye exam: Present: normal appearance, conjuntiva pink, sclera anicteric - Neck Neck exam general surgery: Present: normal inspection, supple, trachea midline. Absent: lymphadenopathy, tenderness - Respiratory Respiratory exam: Present: CTAB, wheezes. Absent: accessory muscle use, decreased breath sounds, rales, respiratory distress, rhonchi - Cardiovascular Cardiovascular exam: Present: RRR, +S1, +S2. Absent: diastolic murmur, gallop, rubs, systolic murmur - GI/Abdominal GI/Abdominal exam: Present: normal bowel sounds, soft. Absent: distended, hepatomegaly, tenderness - Extremities Exam Extremities exam: Present: normal capillary refill, normal inspection, warm, radial pulses palpable and symmetrical. Absent: calf tenderness, cyanotic, pedal edema, tenderness - Neurological Exam Neurological exam: Present: alert, oriented X3, no focal deficits. Absent: facial droop, speech deficit - Skin Skin exam: Present: dry, intact, normal color, warm. Absent: rash Internal Medicine: Result - Labs CBC & Chem 7: 02/28/18 01:01 02/28/18 01:01 Labs: Cardiac Enzymes 02/28/18 02/28/18 Range/Units 07:30 13:14 Troponin I 0.13 H* 0.08 H* (< 0.04) ng/mL - ABG Interpretation ABG results: PT/INR, D-dimer PT 9.2 Seconds (9.4-12.1) L 02/28/18 00:51 Consult Discharge Plan - Plan Referrals: Pricilla Solo DO [Resident] - 04/13/18 9:00 am NONE,PCP [Primary Care Provider] -
[2018-03-01 06:28] LABS: Basophils # 0.1 K/mcL (0.0-0.2); Basophils % 0.7 %; Eosinophils # 0.2 K/mcL (0.0-0.6); Eosinophils % 2.9 %; Immature Granulocytes % 0.6 % (0-4); Lymphocytes # 1.4 K/mcL (0.6-4.6); Mean Corpuscular HGB Conc 33.3 g/dL (31.6-35.5); Mean Corpuscular Hemoglobin 30.4 pg (28.0-33.3); Mean Corpuscular Volume 91.3 fL (83.0-100.0); Mean Platelet Volume 10.5 fL (9.4-12.4); Monocytes # 0.6 K/mcL (0.0-1.3); Monocytes % 8.4 %; Platelet Count 189 K/mcL (140-400); Red Blood Count 4.27 M/mcL (3.82-4.97); Red Cell Distribution Width 13.7 % (11.5-14.5); Segmented Neutrophils % 68.4 %
[2018-03-01 06:45] LABS: BUN/Creatinine Ratio 17 (6-26); Blood Urea Nitrogen 11 mg/dL (6-20); Calcium 8.4 mg/dL (8.6-10.3); Carbon Dioxide 22 mEq/L (23-29); Chloride 112 mEq/L (98-107); Glucose 112 mg/dL (70-105); Osmolality,Calculated 286 (280-300); Potassium 4.2 mEq/L (3.5-5.1); Sodium 138 mEq/L (136-145); eGFR For African Americans > 60 (> 60); eGFR For Non-African Americans > 60 (> 60)
[2018-03-01] MEDS: Nicotine 21 MG PATCH.TD24 TD SCH (08:47)
[2018-03-01] MEDS: Gabapentin 300 MG CAPSULE PO SCH ×2 (08:48→15:06)
[2018-03-01] MEDS: BuPROPion XL (24 HR) 150 MG TABLET PO SCH (08:48)
[2018-03-01] MEDS: diazePAM 5 MG TABLET PO SCH (08:48)
[2018-03-01] MEDS: hydrOXYzine pamoate 25 MG CAPSULE PO PRN ×2 (08:48→15:05)
[2018-03-01] MEDS ORDERED: Aspirin Enteric Coated 81 MG Tablet PO SCH (09:00)
--- NOTE | 2018-03-01 13:54 | Discharge Summary ---
- NOTES TO OUTPATIENT PROVIDER Notes to Outpatient Provider: Pt was admitted for chest pain with elevated troponins. EKG negative for ischemic changes. A shunt with risk factors including smoking and hypertension. Patient had a left heart catheter that showed vessels are angiographically free of disease. Patient's been started on aspirin, statin, beta sahara. Her cardiogram showed preserved ejection fraction and no valvular dysfunction. Ejection should work on modifying risk factors. Patient has been provided with smoking cessation education, will be given NicoDerm patches for discharge. Date of Encounter: 03/01/18 Time of Encounter: 13:20 - Discharge Diagnosis (1) Anxiety Priority: Secondary Status: Acute Assessment and Plan: Chronic. Continue home medications. (2) Elevated glucose level Priority: Secondary Status: Acute Assessment and Plan: No history of diabetes. A1c 5.4%. (3) NSTEMI (non-ST elevated myocardial infarction) Priority: Secondary Status: Acute Assessment and Plan: Patient with elevated troponins and chest pain . Chest x-ray is negative. EKG negative for ST ischemic changes. Patient had LHC today that showed angiographically normal coronary arteries. LVEF of 65%. Recommendations included optimal medical therapy and aggressive risk factor modification. Patient risk factors include tobacco abuse, anxiety. Patient reports smoking 1-1/2 packs per day. Nicoderm patches for discharge. Continue aspirin, statin, beta sahara after discharge, Lisinopril added for HTN. Pt states that she took it previously and ran out, did not get refills from PCP. Echocardiogram shows preserved ejection fraction, mild LV DD, no significant valvular dysfunction. Patient has been hypertensive, chest pain likely related to hypertension and/or stress. Follow with cardiology and primary care. (4) DVT prophylaxis Priority: Secondary Status: Acute Assessment and Plan: Patient has been ambulatory. (5) Leukocytosis Priority: Secondary Status: Acute Assessment and Plan: Resolved. No signs of infection. Patient is afebrile. Qualifiers: Leukocytosis type: unspecified Qualified Code(s): D72.829 - Elevated white blood cell count, unspecified Hospital course: Ms. Almaguer is a 43 year old female who was admitted to the emergency department with chest pain with elevated troponins. Patient was taken for left heart catheter, coronary arteries are angiographically normal. Patient has been started on beta sahara, aspirin, statin. She has had high blood pressure throughout the visit, she has been started on lisinopril 10 mg by mouth daily. Recommend patient modify her risk factors and aggressive risk factor modification. Patient denied chest pain on discharge. Echocardiogram showed preserved ejection fraction and no valvular dysfunction. EKG without ST changes. Vitals and labs were stable. Patient was appropriate for discharge. Discharge discussed with: patient, family - Time Spent with Patient Total time spent providing and/or coordinating discharge services: - Discharge Medications Prescriptions: Aspirin Enteric Coated [Aspirin EC] 81 mg PO DAILY #30 tablet. Atorvastatin [Lipitor] 40 mg PO HS #30 tablet Carvedilol [Coreg] 3.125 mg PO BIDWM #15 tablet Lisinopril [Zestril] 10 mg PO DAILY #30 tablet Nicotine Patch [Nicoderm] 21 mg TD DAILY #28 patch.td24 Home Medications: Citalopram Hydrobromide [Citalopram HBr] 40 mg PO QAM 04/19/16 [History] BuPROPion XL (24 HR) [Wellbutrin Xl] 300 mg PO DAILY 02/28/18 [History] Gabapentin [Neurontin] 800 mg PO TID 02/28/18 [History] hydrOXYzine HCl [Hydroxyzine HCl] 25 mg PO TID PRN 02/28/18 [History] traZODone [TraZODone] 100 mg PO HS 02/28/18 [History] Aspirin Enteric Coated [Aspirin EC] 81 mg PO DAILY #30 tablet. 03/01/18 [Rx] Atorvastatin [Lipitor] 40 mg PO HS #30 tablet 03/01/18 [Rx] Carvedilol [Coreg] 3.125 mg PO BIDWM #15 tablet 03/01/18 [Rx] Gabapentin [Neurontin] 600 mg PO TID capsule 03/01/18 [Rx] Lisinopril [Zestril] 10 mg PO DAILY #30 tablet 03/01/18 [Rx] Nicotine Patch [Nicoderm] 21 mg TD DAILY #28 patch.td24 03/01/18 [Rx] hydrOXYzine pamoate [HydrOXYzine Pamoate] 25 mg PO TID PRN capsule 03/01/18 [Rx ] Allergies/Adverse Reactions: 3 Allergy/AdvReac Type Severity Reaction Status Date / Time No Known Allergies Allergy Verified 07/25/17 13:51 Date of admission: 02/28/18 03:21 Primary care physician: PCP NONE Discharging clinician: Jocy Morales Anticipated date of discharge: 03/01/18 - Constitutional Vitals: Temp Pulse Resp BP Pulse Ox 97.9 F 74 16 145/86 96 03/01/18 11:29 03/01/18 11:29 03/01/18 11:29 03/01/18 11:29 03/01/18 11:29 General appearance: Present: cooperative, A&O X 3, pleasant, no acute distress, answers questions appropriately - Head Head exam: Present: atraumatic, normal inspection, normocephalic - Eye Eye exam: Present: normal appearance, conjuntiva pink, sclera anicteric - Neck Neck exam general surgery: Present: supple, trachea midline. Absent: lymphadenopathy, tenderness - Respiratory Respiratory exam: Present: CTAB. Absent: accessory muscle use, rales, rhonchi, wheezes - Cardiovascular Cardiovascular exam: Present: RRR, +S1, +S2. Absent: diastolic murmur, gallop, rubs, systolic murmur - GI/Abdominal GI/Abdominal exam: Present: normal bowel sounds, soft, no peritoneal signs. Absent: distended, tenderness - Extremities Exam Extremities exam: Present: warm, radial pulses palpable and symmetrical. Absent : calf tenderness, cyanotic, pedal edema - Neurological Exam Neurological exam: Present: CN II-XII intact, oriented X3, no focal deficits. Absent: pronater drift, facial droop, speech deficit - Skin Skin exam: Present: dry, intact, normal color, warm. Absent: rash - Patient Status Disposition: Home, Self-Care Condition: Good Functional capacity at discharge: independent ambulation Overall status at discharge: patient is back to baseline - Discharge Instructions Instructions: Lisinopril (By mouth), Aspirin (By mouth), Nicotine (Absorbed through the skin), Atorvastatin (By mouth), Carvedilol (By mouth), Chest Pain ( DC), Chronic Hypertension (DC) Follow Up With: Pricilla Solo DO [Resident] - 04/13/18 9:00 am Additional Instructions: Please follow up with your PCP in the next 7-10 days Take your medications as directed. Return to the ER as needed for any other problems or concerns. Stop smoking Return to your normal activities and diet as tolerated. RISK FACTORS: STOP SMOKING: If you smoke, STOP. Smoking or tobacco use significantly increases your risk of heart disease because nicotine causes the arteries to narrow or constrict. It also causes fats to stick to the artery. Your chances of having a heart attack are greatly increased if you continue to smoke. For more information, call the education line for smoking cessation 0-429-EXHJNVL EAT A LOW FAT/CHOLESTEROL/SODIUM DIET: This diet may help reduce your chances of having a heart attack. LIFTING: Avoid lifting anything more than 10 pounds for 5-7 days Prior to straining, laughing, sneezing and/or coughing, apply manual pressure directly over insertion site. ACTIVITY: You may walk or climb stairs as tolerated You can resume sexual activity as tolerated In general, you are encouraged to engage in a minimum of 30 minutes or more of moderate intensity physical activity, such as brisk walking, daily or at least 3 -4 times weekly BATHING Do not submerge the site into water (bath tub, hot tub, swimming pool) for 1 week. This can be a source for infection into the blood stream. You may shower after 24 hours SITE CARE: After 24 hours, you may remove the dressing and leave the site open to air. Keep the site clean and dry. Clean gently and pat dry. You can expect bruising and tenderness that gradually resolve within a week or two. Return to work as instructed per your physician Resume driving as instructed per physician Keep all scheduled follow up appointments Resume medications as instructed IMPORTANT: If prescribed a Platelet Aggregation Inhibitor such as, Plavix, Brilinta or Effient: Duration of therapy is minimum one year These medications are often used in combination with Aspirin in prevention of future heart attacks Never discontinue unless consult with your Scalper Operator STROKE (CVA) Risk factors for a stroke are: Age, cigarette smoking, diabetes, excessive alcohol consumption, family history, high blood pressure, overweight, physical inactivity, prior stroke, heart attack, diagnosis of carotid artery stenosis or other artery disease. Warning signs: Sudden numbness or weakness of the face, arm or leg; especially on one side of the body, sudden confusion, trouble speaking or understanding, sudden trouble seeing in one or both eyes, sudden trouble walking, dizziness, loss of balance or coordination, sudden severe headache with no cause. Call 911 or go to the Emergency Room. CONGESTIVE HEART FAILURE: If you have been diagnosed with Congestive Heart Failure (CHF) and your symptoms return, make an appointment with your physician Weigh yourself daily. Notify your physician if you have a weight gain of two or more pounds in one day or five or more pounds in one week. If you experience any difficulty breathing, please call 911 BLEEDING: Although the risk of bleeding is minimal, it can happen. If you have any bleeding from the site, apply firm pressure above the puncture site for 10-15 minutes. If the bleeding does not stop, continue manual pressure and call 911 Contact your physician if: You develop a fever greater than 101 degrees Fahrenheit Your site becomes reddened or has any drainage You have an increase in pain or burning at the site or if a large knot forms at the site. If you experience chest pain, shortness of breath, dizziness, or extreme tiredness, stop the activity and rest. Please notify your physicians office if you experience any of these symptoms and they are not relieved by rest please call 911! - Diet and Activity Activity: increase activity as tolerated Diet: low fat, low cholesterol, low salt diet
[2018-03-01] MEDS ORDERED: hydrALAZINE 10 MG TABLET PO ONE (16:32)
[2018-03-01 17:33] VITALS: BP 152/90
== END 2018-03-01 18:35 | disposition home or self-care (01) | DRG 190 ==
LOC: 3BNU 00:15 → EMEROO 00:15 → 3BNU 03:55
PROVIDERS: ADMIT Internal Medicine; ATTEND Family Medicine

== ENCOUNTER 2020-04-30 14:08 | Inpatient (IN) ==
[2020-04-30] MEDS ORDERED: Isovue-370 500 ML BOTTLE IVP ONE (14:37)
[2020-04-30] MEDS ORDERED: *HR* LORazepam 0.5 MG TABLET PO ONE (14:38)
[2020-04-30 14:45] LABS: Bilirubin,Urine Negative (Negative); Blood,Urine Negative (Negative); Clarity,Urine Clear (Clear); Color,Urine Colorless (Yellow); Glucose,Urine (UA) Normal (Normal); Ketones,Urine Negative (Negative); Leukocyte Esterase,Urine Negative (Negative); Nitrite,Urine Negative (Negative); Protein,Urine Negative (Neg-Trace); Specific Gravity,Urine < 1.005 (1.010-1.025); Urobilinogen,Urine Normal (Normal)
[2020-04-30] MEDS ORDERED: lisinopriL 10 MG TABLET PO ONE (14:45)
[2020-04-30 14:48] LABS: Basophils # 0.1 K/mcL (0.0-0.2); Basophils % 1.7 %; Eosinophils # 0.1 K/mcL (0.0-0.6); Eosinophils % 1.7 %; Hematocrit 43.4 % (35.3-44.9); Hemoglobin 15.2 g/dL (11.5-15.4); Immature Granulocytes % 0.3 % (0-4); Lymphocytes # 2.4 K/mcL (0.6-4.6); Mean Corpuscular Hemoglobin 31.8 pg (28.0-33.3); Mean Corpuscular Volume 90.8 fL (83.0-100.0); Mean Platelet Volume 9.1 fL (9.4-12.4); Monocytes # 0.5 K/mcL (0.0-1.3); Monocytes % 7.3 %; Neutrophils # 4.2 K/mcL (1.6-8.9); Platelet Count 211 K/mcL (140-400); Red Blood Count 4.78 M/mcL (3.82-4.97); Red Cell Distribution Width 13.3 % (11.5-14.5); White Blood Count 7.4 K/mcL (4.3-11.1)
[2020-04-30 14:56] LABS: Amphetamine Screen,Urine Negative ng/mL (Cutoff=1000); Barbiturate Screen,Urine Negative ng/mL (Cutoff=200); Benzodiazepines Screen,Urine Negative ng/mL (Cutoff=200); Cannabinoid Screen,Urine Negative ng/mL (Cutoff = 50); Cocaine Screen,Urine Negative ng/mL (Cutoff= 300); Opiate Screen,Urine Negative ng/mL (Cutoff=300); Phencyclidine Screen,Urine Negative ng/mL (Cutoff=25)
[2020-04-30 15:06] LABS: Estimated Average Glucose 111 mg/dl
[2020-04-30 15:10] LABS: Acetaminophen < 10 mcg/mL (10-20); Alanine Aminotransferase 41 Units/L (7-52); Albumin 4.2 g/dL (3.5-5.7); Albumin/Globulin Ratio 1.4 (1.1-2.2); Alkaline Phosphatase 145 Units/L (34-104); Aspartate Amino Transferase 49 Units/L (13-39); BUN/Creatinine Ratio 7 (6-26); Bilirubin,Direct 0.1 mg/dL (0.0-0.2); Bilirubin,Indirect 0.2 mg/dL (0.0-1.0); Bilirubin,Total 0.3 mg/dL (0.3-1.0); Blood Urea Nitrogen 4 mg/dL (6-20); Calcium 8.3 mg/dL (8.6-10.3); Carbon Dioxide 23 mEq/L (23-29); Chloride 100 mEq/L (98-107); Chol/HDL Ratio 1.9 (0-4.9); Cholesterol 182 mg/dL (< 200); Ethanol 348 mg/dL (Less than 10); Glucose 95 mg/dL (70-105); HDL Cholesterol 98 mg/dL (40-59); LDL Cholesterol,Calculated 61 mg/dL (< 100); Lipase 21 Units/L (11-82); Osmolality,Calculated 273 (280-300); Salicylate < 2.5 mg/dL (15.0-30.0); Sodium 133 mEq/L (136-145); Total Protein 7.2 g/dL (6.4-8.9); Triglycerides 117 mg/dL (< 150); eGFR For African Americans > 60 (> 60); eGFR For Non-African Americans > 60 (> 60)
[2020-04-30 15:17] LABS: Troponin I < 0.03 ng/mL (< 0.04)
[2020-04-30 17:14] LABS: Chlamydia Trachomatis DNA Ur NOT DETECTED (Not Detect)
[2020-04-30] MEDS ORDERED: GI Cocktail 40 ML EACH PO ONE (18:49)
[2020-04-30] MEDS ORDERED: 0.9 % Sodium Chloride 1,000 ML IV ONE (20:03)
[2020-04-30 20:17] LABS: Hepatitis B Surface Antigen Nonreactive (Nonreactive)
[2020-04-30 20:45] LABS: HIV-1&2 Antibody & p24 Ag Nonreactive (Nonreactive)
[2020-04-30 20:46] LABS: Hepatitis C Virus Antibody Nonreactive (Nonreactive)
[2020-04-30 20:47] LABS: Hepatitis B Core IgM Nonreactive (Nonreactive)
[2020-04-30] MEDS ORDERED: *HR* LORazepam 2 MG/ML VIAL IVP ONE (21:18)
[2020-04-30 22:03] LABS: Candida DNA Not Detected (Not Detect); Gardnerella DNA DETECTED (Not Detect); Trichomonas DNA Not Detected (Not Detect)
[2020-04-30] MEDS ORDERED: Ondansetron 4 MG/2 ML VIAL IVP PRN (22:36)
[2020-04-30] MEDS ORDERED: *HR* Promethazine 25 MG/ML VIAL IVP PRN (22:36)
[2020-04-30] MEDS ORDERED: Naloxone 0.4 MG/ML INJ IVP PRN (22:36)
[2020-04-30] MEDS ORDERED: *HR* LORazepam 2 MG/ML VIAL IVP PRN ×2 (22:37)
[2020-04-30] MEDS ORDERED: hydrOXYzine pamoate 25 MG CAPSULE PO PRN (22:38)
[2020-04-30 23:43] LABS: Hepatitis A Antibody IgM Nonreactive (Nonreactive)
[2020-05-01] MEDS: Ringers Solution, Lactated 1,000 ML IVC SCH ×2 (00:12→07:49)
[2020-05-01] MEDS: Nicotine 21 MG PATCH.TD24 TD SCH ×2 (00:14→07:50)
[2020-05-01] MEDS ORDERED: Acetaminophen 325 MG TABLET PO PRN (01:12)
[2020-05-01 02:50] LABS: Basophils # 0.1 K/mcL (0.0-0.2); Basophils % 1.1 %; Eosinophils # 0.1 K/mcL (0.0-0.6); Hematocrit 39.5 % (35.3-44.9); Immature Granulocytes % 0.3 % (0-4); Lymphocytes # 1.6 K/mcL (0.6-4.6); Lymphocytes % 17.1 %; Mean Corpuscular HGB Conc 33.9 g/dL (31.6-35.5); Mean Corpuscular Hemoglobin 30.5 pg (28.0-33.3); Mean Platelet Volume 9.6 fL (9.4-12.4); Monocytes # 0.6 K/mcL (0.0-1.3); Monocytes % 6.4 %; Neutrophils # 6.7 K/mcL (1.6-8.9); Platelet Count 176 K/mcL (140-400); Red Blood Count 4.39 M/mcL (3.82-4.97); Red Cell Distribution Width 13.3 % (11.5-14.5); Segmented Neutrophils % 74.1 %; White Blood Count 9.1 K/mcL (4.3-11.1)
[2020-05-01 02:52] LABS: Hemoglobin 13.4 g/dL (11.5-15.4); INR 0.9; Prothrombin Time 10.5 Seconds (9.4-12.1)
[2020-05-01 03:10] LABS: BUN/Creatinine Ratio 7 (6-26); Blood Urea Nitrogen 4 mg/dL (6-20); Calcium 7.7 mg/dL (8.6-10.3); Carbon Dioxide 21 mEq/L (23-29); Chloride 107 mEq/L (98-107); Glucose 79 mg/dL (70-105); Osmolality,Calculated 282 (280-300); Potassium 3.9 mEq/L (3.5-5.1); Sodium 138 mEq/L (136-145); eGFR For African Americans > 60 (> 60); eGFR For Non-African Americans > 60 (> 60)
[2020-05-01] MEDS: *HR* LORazepam 2 MG/ML VIAL IVP PRN ×5 (03:27→20:40)
[2020-05-01] MEDS: Ipratropium/Albuterol Neb 3 ML IH SCH ×5 (03:50→20:20)
[2020-05-01] MEDS: *HR* Enoxaparin 40 MG/0.4 ML SYRINGE SQ SCH (06:04)
[2020-05-01] MEDS: Aspirin Enteric Coated 81 MG Tablet PO SCH (07:49)
[2020-05-01] MEDS ORDERED: BuPROPion XL (24 HR) 150 MG TABLET PO SCH (09:00)
[2020-05-01] MEDS ORDERED: Nicotine 21 MG PATCH.TD24 TD SCH (09:00)
[2020-05-01] MEDS: Gabapentin 400 MG CAPSULE PO SCH ×3 (11:31→20:43)
[2020-05-01] MEDS: Thiamine (B-1) 100 MG, Folic Acid 1 MG, MVI, adult with vitamin K 10 ML in 0.9 % Sodi... IVPB SCH (17:26)
[2020-05-01] MEDS: traZODone 50 MG TABLET PO SCH (20:42)
[2020-05-01] MEDS: hydrOXYzine pamoate 25 MG CAPSULE PO PRN (20:43)
[2020-05-01] MEDS ORDERED: Ipratropium/Albuterol Neb 3 ML IH PRN (20:55)
[2020-05-01] MEDS: CLINDAMYCIN VAG VG SCH (21:26)
[2020-05-02 01:44] LABS: Hematocrit 33.2 % (35.3-44.9); Hemoglobin 11.2 g/dL (11.5-15.4); Immature Platelets 4.8 % (1.1-6.1); Mean Corpuscular HGB Conc 33.7 g/dL (31.6-35.5); Mean Corpuscular Hemoglobin 30.9 pg (28.0-33.3); Mean Corpuscular Volume 91.7 fL (83.0-100.0); Mean Platelet Volume 9.7 fL (9.4-12.4); Red Blood Count 3.62 M/mcL (3.82-4.97); Red Cell Distribution Width 13.5 % (11.5-14.5)
[2020-05-02 01:53] LABS: BUN/Creatinine Ratio 8 (6-26); Blood Urea Nitrogen 5 mg/dL (6-20); Calcium 8.4 mg/dL (8.6-10.3); Carbon Dioxide 25 mEq/L (23-29); Chloride 107 mEq/L (98-107); Glucose 111 mg/dL (70-105); Magnesium 1.9 mg/dL (1.6-2.6); Osmolality,Calculated 286 (280-300); Phosphorous 3.7 mg/dL (2.7-4.5); Potassium 3.3 mEq/L (3.5-5.1); Sodium 139 mEq/L (136-145); eGFR For African Americans > 60 (> 60); eGFR For Non-African Americans > 60 (> 60)
[2020-05-02] MEDS: *HR* Enoxaparin 40 MG/0.4 ML SYRINGE SQ SCH (06:41)
[2020-05-02] MEDS: Aspirin Enteric Coated 81 MG Tablet PO SCH (08:06)
[2020-05-02] MEDS: Nicotine 21 MG PATCH.TD24 TD SCH (08:06)
[2020-05-02] MEDS: *HR* LORazepam 2 MG/ML VIAL IVP PRN ×4 (08:06→22:29)
[2020-05-02] MEDS: Gabapentin 400 MG CAPSULE PO SCH ×3 (08:06→22:29)
[2020-05-02] MEDS: Thiamine (B-1) 100 MG, Folic Acid 1 MG, MVI, adult with vitamin K 10 ML in 0.9 % Sodi... IVPB SCH (18:02)
[2020-05-02] MEDS: traZODone 50 MG TABLET PO SCH (22:29)
[2020-05-02] MEDS: CLINDAMYCIN VAG VG SCH (22:30)
[2020-05-03] MEDS: *HR* Enoxaparin 40 MG/0.4 ML SYRINGE SQ SCH (06:04)
[2020-05-03 06:11] LABS: Basophils % 0.5 %; Eosinophils # 0.2 K/mcL (0.0-0.6); Eosinophils % 2.9 %; Hematocrit 36.1 % (35.3-44.9); Hemoglobin 11.9 g/dL (11.5-15.4); Immature Granulocytes % 0.4 % (0-4); Lymphocytes # 1.8 K/mcL (0.6-4.6); Lymphocytes % 32.1 %; Mean Corpuscular Hemoglobin 30.8 pg (28.0-33.3); Mean Corpuscular Volume 93.5 fL (83.0-100.0); Mean Platelet Volume 10.1 fL (9.4-12.4); Monocytes # 0.5 K/mcL (0.0-1.3); Monocytes % 8.2 %; Neutrophils # 3.1 K/mcL (1.6-8.9); Platelet Count 131 K/mcL (140-400); Red Blood Count 3.86 M/mcL (3.82-4.97); Red Cell Distribution Width 13.6 % (11.5-14.5); Segmented Neutrophils % 55.9 %; White Blood Count 5.5 K/mcL (4.3-11.1)
[2020-05-03 06:31] LABS: BUN/Creatinine Ratio 8 (6-26); Blood Urea Nitrogen 5 mg/dL (6-20); Carbon Dioxide 25 mEq/L (23-29); Chloride 111 mEq/L (98-107); Glucose 94 mg/dL (70-105); Osmolality,Calculated 289 (280-300); Potassium 3.4 mEq/L (3.5-5.1); Sodium 141 mEq/L (136-145); eGFR For African Americans > 60 (> 60); eGFR For Non-African Americans > 60 (> 60)
[2020-05-03] MEDS ORDERED: Potassium Chloride Elixir 20 MEQ/15 ML UDC PO ONE (08:06)
[2020-05-03] MEDS: Gabapentin 400 MG CAPSULE PO SCH ×3 (09:01→20:31)
[2020-05-03] MEDS: Nicotine 21 MG PATCH.TD24 TD SCH (09:01)
[2020-05-03] MEDS: Aspirin Enteric Coated 81 MG Tablet PO SCH (09:01)
[2020-05-03] MEDS: *HR* LORazepam 2 MG/ML VIAL IVP PRN (09:07)
[2020-05-03] MEDS: hydrOXYzine pamoate 25 MG CAPSULE PO PRN ×2 (15:43→23:08)
[2020-05-03] MEDS: Thiamine (B-1) 100 MG, Folic Acid 1 MG, MVI, adult with vitamin K 10 ML in 0.9 % Sodi... IVPB SCH (18:46)
[2020-05-03] MEDS: traZODone 50 MG TABLET PO SCH (20:31)
[2020-05-03] MEDS: CLINDAMYCIN VAG VG SCH (20:31)
[2020-05-04] MEDS: *HR* Enoxaparin 40 MG/0.4 ML SYRINGE SQ SCH (05:51)
[2020-05-04 08:07] VITALS: BP 147/90
[2020-05-04] MEDS: hydrOXYzine pamoate 25 MG CAPSULE PO PRN (09:03)
[2020-05-04] MEDS: Aspirin Enteric Coated 81 MG Tablet PO SCH (09:03)
[2020-05-04] MEDS: Gabapentin 400 MG CAPSULE PO SCH (09:03)
[2020-05-04] MEDS: Nicotine 21 MG PATCH.TD24 TD SCH (09:04)
== END 2020-05-04 10:30 | disposition home or self-care (01) | DRG 775 ==
LOC: EMEROOARM 14:08 → 2ANU 14:08 → SUATTDRO 22:26 → 2ANU 23:04
PROVIDERS: ADMIT Internal Medicine; ATTEND Internal Medicine